=== PATIENT | male | born 2000 ===

== ENCOUNTER 2023-03-31 14:03 | Observation (INO) | payer OTHER ==
[~2023-03-31] VITALS: Ht 180.3 cm; Wt 95.0 kg
[2023-03-31] VITALS (7 sets, daily range): BP systolic 102–158; BP diastolic 60–78; PULSE 62–73; TEMP 97.8–98.3
--- NOTE | 2023-03-31 20:18 | NUR ---
Pt arrived to room 318 from [facility], via EMS, at approximately 1435. Diagnosis syncope. Heparin upon transfer d/c'd per physician order. NS started at 100ml/hr. IV site without s/s complication. Placed on high fall risk precautions due to syncopal episode this morning which caused him to fall. Denies chest pain, dizziness or SOA. Tele NSR. and co-workers at bedside during bedside report.
--- NOTE | 2023-03-31 21:17 | NUR ---
KISHA Sánchez notified of troponin of 0.072. No new orders received
--- NOTE | 2023-03-31 21:34 | NUR ---
patient lying in bed, alert and oriented x4. pt denies chest pain and shortness of breath. ambulated to bathroom with steady gait. RAC IV is patent with NS running and site is clean, dry, and intact. troponins trending down at this time, last measured as 0.072. pt educated on NPO after midnight per nursing orders and verbally understands. pt has no further needs, questions, or concerns ath this time. call light within reach, will continue to monitor.
[2023-04-01] VITALS (7 sets, daily range): BP systolic 111–127; BP diastolic 55–65; PULSE 56–87; TEMP 98.1
--- NOTE | 2023-04-01 07:30 | NUR ---
Assessment completed. IVF infusing to RAC without s/s complication. Pt reports discomfort to the IV site with movement only. Denies pain or needs. Fall precautions in place. NPO. Plan for Echo this am.
[2023-04-01 07:40] LABS: BASO # 0.1 K/mm3 (0.0-0.2); BASO % 1.1 % (0.0-2.0); EOS # 0.3 K/mm3 (0.0-0.7); GRAN # 4.5 K/mm3 (1.4-6.5); HEMATOCRIT 43.4 % (42.0-52.0); HEMOGLOBIN 14.4 g/dl (13.5-18.0); MEAN CELL VOLUME 86 fl (80.0-100.0); MEAN CORPUSCULAR HEMOGLOBIN 29 pg (27-31); MEAN CORPUSCULAR HGB CONC 33 g/dl (33.0-37.0); MONO # 0.7 K/mm3 (0.1-0.6); MONO % 8.6 % (1.7-9.3); PLATELET COUNT 291 K/mm3 (130-400); RED BLOOD COUNT 5.06 M/mm3 (4.20-5.60); REDCELL DISTRIBUTION WIDTH-CV 13.2 % (11.5-14.5)
[2023-04-01 07:56] LABS: ALBUMIN 3.6 gm/dL (3.5-5.0); CALCIUM 8.9 mg/dL (8.4-10.2); CREATININE, serum 0.98 mg/dL (0.72-1.25); PHOSPHOROUS 4.2 mg/dL (2.3-4.7); POTASSIUM 4.1 mmol/L (3.5-4.5)
--- NOTE | 2023-04-01 11:36 | NUR ---
Initial visit: Education Managers stopped by room on rounds. Pt was resting and content with in the room. Pt has no needs right now. Education Managers will follow up as needed.
--- NOTE | 2023-04-01 13:16 | NUR ---
garden worker met with patient and his , Sofya Evans# [phone] whom was at bedside, to discuss discharge planning. Patient confirmed he lives in [place] with his . Patient reports his primary care physician is Lt. Cuevas at [facility]. Preferred pharmacy is [facility] in [place]. Patient denied any issues with affording his medications. Patient does not currently have a DPOA-HC and did not wish to establish one during his hospital stay. Patient reports he does not have any DME at home and is independent with ADLS prior to hospitalization. Patient would like to return home at time of discharge. Discharge Plan: Home
[2023-04-01] MEDS ORDERED: ASPIRIN 81M81 MG/TA2 PO (14:06)
--- NOTE | 2023-04-01 15:40 | NUR ---
Discharge instructions reviewed with patient and his spouse- both verbalize understanding. INT to right ac d/c'd with cath tip intact. Pt escorted to private vehicle and discharge home with spouse.
== END 2023-04-01 15:42 | disposition home or self-care (01) ==
LOC: MEDICAL 14:03
PROVIDERS: ADMIT Internal Medicine
DX: R55 Syncope and collapse (principal); R51.9 Headache, unspecified; R79.89 Other specified abnormal findings of blood chemistry
CPT/HCPCS: G0378; G0379; J7030